=== PATIENT | male | born 1995 | race African-American/Black ===

== ENCOUNTER 2020-06-27 09:10 | Emergency (ER) | payer MEDICAID ==
[~2020-06-27] VITALS: Ht 180.3 cm; Wt 79.0 kg
[2020-06-27] MEDS ORDERED: AZITHROMYCIN 500 MG TABLET PO ONE (10:00)
[2020-06-27] MEDS ORDERED: CEFTRIAXONE SODIUM 250 MG/VIAL IM ONE (10:00)
[2020-06-27] MEDS ORDERED: ACETAMINOPHEN 325MG TABLET PO ONE (10:00)
[2020-06-27] MEDS ORDERED: LIDOCAINE HCL 1% 20ML VIAL (Pyxis) INJ INFIL ONE (10:00)
[2020-06-27 10:31] LABS: CLARITY URINE CLOUDY (CLEAR); COLOR URINE YELLOW (YELLOW); KETONES URINE NEGATIVE (NEGATIVE); LEUKOCYTE ESTERASE URINE 3+ (NEGATIVE); NITRITE URINE NEGATIVE (NEGATIVE); OCCULT BLOOD URINE NEGATIVE (NEGATIVE); PH URINE 7.5 (4.5-8.0); PROTEIN URINE NEGATIVE (NEGATIVE); SPECIFIC GRAVITY URINE 1.024 (1.005-1.030)
[2020-06-27 10:51] VITALS: BP 108/78
== END 2020-06-27 10:52 | disposition home or self-care (01) ==
LOC: ER 09:10
DX: N30.00 Acute cystitis without hematuria (principal); Z20.2 Contact with and (suspected) exposure to infections with a predominantly sexual mode of transmission
CPT/HCPCS: 81003; 87077; 87086; 96372; 99283; J0696; J3490